=== PATIENT | female | born 1950 | race Caucasian/White ===

== ENCOUNTER 2025-03-28 16:51 | Emergency (ER) | payer MEDICARE ==
[2025-03-28] MEDS ORDERED: Acetaminophen/HYDROcodone 325-5 MG Tab PO ONE (16:52)
[2025-03-28] MEDS: Midazolam 1 MG/ML 2 ML SDV IVPUSH ONE (18:39)
== END 2025-03-28 20:51 | disposition home or self-care (01) ==
LOC: FB.ED 16:51
DX: S43.014A Anterior dislocation of right humerus, initial encounter (principal); Z88.8 Allergy status to other drugs, medicaments and biological substances; Z79.01 Long term (current) use of anticoagulants; W18.39XA Other fall on same level, initial encounter; Y93.89 Activity, other specified
CPT/HCPCS: 23650; 36410; 73030-RT; 73060-RT; 99100; 99283; 99283-25; A9270-GY; J2250